=== PATIENT | male | born 1960 | race African-American/Black ===

== ENCOUNTER 2017-01-02 11:04 | Emergency (ER) | payer MEDICAID ==
[~2017-01-02] VITALS: Ht 177.8 cm; Wt 64.0 kg
[2017-01-02 11:44] VITALS: BP 100/100
== END 2017-01-02 19:45 | disposition left against medical advice (07) ==
LOC: ER 11:04
DX: Z53.21 Procedure and treatment not carried out due to patient leaving prior to being seen by health care provider (principal)

== ENCOUNTER 2017-04-18 03:52 | Emergency (ER) | payer MEDICAID ==
[~2017-04-18] VITALS: Ht 170.2 cm; Wt 75.0 kg
[2017-04-18 03:56] VITALS: BP 155/76
== END 2017-04-18 09:14 | disposition left against medical advice (07) ==
LOC: ER 03:52
DX: Z53.21 Procedure and treatment not carried out due to patient leaving prior to being seen by health care provider (principal)